=== PATIENT | female | born 1975 | race Two or more races ===

== ENCOUNTER → 2024-12-31 | Emergency (ER) | payer OTHER ==
[~2024-12-31] VITALS: Ht 172.7 cm; Wt 60.8 kg
[~2024-12-31] MED LIST: ACETAMINOPHEN 500 MG GEL..CAP PO ONE
[2024-12-31 19:40] VITALS: BP 128/79; O2SAT 100
== END | disposition home or self-care (01) ==
LOC: ER 18:55
DX: S09.8XXA Other specified injuries of head, initial encounter (principal); X58.XXXA Exposure to other specified factors, initial encounter; Y93.89 Activity, other specified; Y92.89 Other specified places as the place of occurrence of the external cause; Y99.8 Other external cause status; Z88.2 Allergy status to sulfonamides; Z88.5 Allergy status to narcotic agent; Z88.6 Allergy status to analgesic agent